=== PATIENT | male | born 1980 | race Caucasian/White ===

== ENCOUNTER 2018-04-06 19:38 | Emergency (ER) | payer OTHER ==
[~2018-04-06] VITALS: Ht 190.5 cm; Wt 120.2 kg
--- NOTE | 2018-04-06 19:51 | ED Abdominal Pain ---
General Stated Complaint: L SIDE ABD PAIN Source of Information: Patient Exam Limitations: No Limitations History of Present Illness Date Seen by Provider: Apr 06, 2018 Time Seen by Provider: 19:50 Initial Comments to ER per private vehicle with reports of left lower quadrant abdominal pain. He 's had this abdominal pain foraa couple of years off and on but it's never been intense and he never thought much of it. This evening after eating dinner he developed some nausea and very sharp pain in the left lower quadrant that is getting worse. He did take some Tylenol at home about an hour ago. No vomiting. No fevers or chills. No dysuria and no bowel changes. He suspects this may be a hernia.he does not report any scrotal pain or bulging. Timing/Duration: 1-2 Days Severity/Quality: Moderate Location: LLQ Radiation: No Radiation Associated Symptoms: Nausea/Vomiting Allergies and Home Medications Allergies Coded Allergies: No Known Drug Allergies (Unverified , 04/06/18) Patient Home Medication List Home Medication List Reviewed: Yes Review of Systems Constitutional: see HPI; No chills, No fever EENTM: No Symptoms Reported Respiratory: No Symptoms Reported Cardiovascular: No Symptoms Reported Gastrointestinal: See HPI, Abdominal Pain; Denies Constipated, Denies Diarrhea ; Nausea; Denies Vomiting Genitourinary: No Symptoms Reported Musculoskeletal: no symptoms reported Skin: no symptoms reported Psychiatric/Neurological: No Symptoms Reported Endocrine: No Symptoms Reported Past Rbnohdk-Qixzpk-Bgouid Hx Patient Social History Recent Foreign Travel: No Contact w/Someone Who Travel: No Physical Exam Vital Signs Vital Signs - First Documented 04/06/18 19:42 Temp 98.4 Pulse 83 Resp 18 B/P (MAP) 138/95 (109) Pulse Ox 96 O2 Delivery Room Air Capillary Refill : Height/Weight/BMI Height: '" Weight: lbs. oz. kg; BMI Method: General Appearance: WD/WN, no apparent distress HEENT: PERRL/EOMI, normal ENT inspection Neck: non-tender, full range of motion Respiratory: no respiratory distress, no accessory muscle use Gastrointestinal: normal bowel sounds, soft; No guarding; rebound, tenderness ( left lower quadrant tenderness to palpation), other (nno bulges in the abdominal wall. I suspect this may be diverticulitis so we will further evaluate with CT scan.) Extremities: normal range of motion, non-tender Neurologic/Psychiatric: alert, normal mood/affect, oriented x 3 Skin: normal color, warm/dry Progress/Results/Core Measures Results/Orders Lab Results Laboratory Tests Test 04/06/18 19:50 Range/Units White Blood Count 11.6 H 4.3-11.0 10^3/uL Red Blood Count 5.16 4.35-5.85 10^6/uL Hemoglobin 15.6 13.3-17.7 G/DL Hematocrit 45 40-54 % Mean Corpuscular Volume 87 80-99 FL Mean Corpuscular Hemoglobin 30 25-34 PG Mean Corpuscular Hemoglobin Concent 35 32-36 G/DL Red Cell Distribution Width 13.8 10.0-14.5 % Platelet Count 405 H 130-400 10^3/uL Mean Platelet Volume 9.1 7.4-10.4 FL Neutrophils (%) (Auto) 63 42-75 % Lymphocytes (%) (Auto) 23 12-44 % Monocytes (%) (Auto) 10 0-12 % Eosinophils (%) (Auto) 4 0-10 % Basophils (%) (Auto) 0 0-10 % Neutrophils # (Auto) 7.3 1.8-7.8 X 10^3 Lymphocytes # (Auto) 2.7 1.0-4.0 X 10^3 Monocytes # (Auto) 1.1 H 0.0-1.0 X 10^3 Eosinophils # (Auto) 0.4 H 0.0-0.3 10^3/uL Basophils # (Auto) 0.1 0.0-0.1 10^3/uL Sodium Level 139 135-145 MMOL/L Potassium Level 3.8 3.6-5.0 MMOL/L Chloride Level 106 98-107 MMOL/L Carbon Dioxide Level 22 21-32 MMOL/L Anion Gap 11 5-14 MMOL/L Blood Urea Nitrogen 12 7-18 MG/DL Creatinine 0.83 0.60-1.30 MG/DL Estimat Glomerular Filtration Rate > 60 BUN/Creatinine Ratio 14 Glucose Level 92 70-105 MG/DL Calcium Level 9.3 8.5-10.1 MG/DL Total Bilirubin 0.5 0.1-1.0 MG/DL Aspartate Amino Transf (AST/SGOT) 22 5-34 U/L Alanine Aminotransferase (ALT/SGPT) 30 0-55 U/L Alkaline Phosphatase 55 40-136 U/L Total Protein 7.7 6.4-8.2 GM/DL Albumin 4.4 3.2-4.5 GM/DL My Orders Orders - SHARONDA HART APRN Ketorolac Injection (Toradol Injection) (04/06/18 20:00) Cbc With Automated Diff (04/06/18 19:47) Ua Culture If Indicated (04/06/18 19:47) Comprehensive Metabolic Panel (04/06/18 19:47) Iv Heplock-Insert (Order) (04/06/18 19:47) Ct Abdomen/Pelvis W (04/06/18 19:47) Iohexol Injection (Omnipaque 350 Mg/Ml 1 (04/06/18 20:00) Ns (Ivpb) (Sodium Chloride 0.9% Ivpb Bag (04/06/18 20:00) Medications Given in ED Current Medications Medications Dose Ordered Sig/Xenia Route Start Time Stop Time Status Last Admin Dose Admin Iohexol 100 ml ONCE ONCE IV 04/06/18 20:00 04/06/18 20:04 DC 04/06/18 20:04 100 ML Ketorolac Tromethamine 30 mg ONCE ONCE IVP 04/06/18 20:00 04/06/18 20:01 DC 04/06/18 20:01 30 MG Sodium Chloride 100 ml ONCE ONCE IV 04/06/18 20:00 04/06/18 20:04 DC 04/06/18 20:04 100 ML Vital Signs/I&O 04/06/18 19:42 Temp 98.4 Pulse 83 Resp 18 B/P (MAP) 138/95 (109) Pulse Ox 96 O2 Delivery Room Air Diagnostic Imaging Diagonstic Imaging: CT Comments NAME: DIANA [facility] REC#: [id number] PT STATUS: REG ER : 1980 PHYSICIAN: SHARONDA HART APRN ADMIT DATE: 04/06/18/ER Draft Date of Exam:04/06/18 CT ABDOMEN/PELVIS W PROCEDURE: CT abdomen and pelvis with contrast. TECHNIQUE: Multiple contiguous axial images were obtained through the abdomen and pelvis after administration of intravenous contrast. INDICATION: Left lower quadrant abdominal pain. COMPARISON: None. FINDINGS: The lung bases are clear. There is fatty infiltration throughout the liver. The gallbladder and remainder of the solid organs are grossly unremarkable. Vascular structures are intact. There are a few diverticuli of the sigmoid colon with some slight inflammatory change in the mesenteric fat. This likely represents a very minimal diverticulitis. There is no abscess, free air or free fluid. The prostate is normal. Distal ureters and urinary bladder are unremarkable. The appendix is normal. Osseous structures are age-appropriate. IMPRESSION: 1. Minimal diverticulitis of the sigmoid colon. No abscess. 2. Fatty liver. Dictated on workstation # [id number] Dict: 04/06/182024 Trans: 04/06/182027 [facility] [id number] Interpreted by: GRACIELA BAIN Electronically signed by: Departure Impression Primary Impression: Diverticulitis of intestine Disposition: 01 HOME, SELF-CARE Condition: Stable Departure-Patient Inst. Decision time for Depature: 20:31 Referrals: MARCIA SWEENEY MD (PCP/Family) Primary Care Physician Patient Instructions: Diverticulitis (DC) Add. Discharge Instructions: 1. Clear liquids only for the next 24 hours 2. Antibiotics as directed 3. Pain medication in addition to ibuprofen as needed for pain control. Antibiotics as directed. Nausea medication as needed. Follow-up with your doctor within 1 week for recheck. Scripts Ondansetron (Zofran Odt) 8 Mg Tab.rapdis 8 MG PO Q6H PRN for NAUSEA/VOMITING-1ST LINE, #14 TAB Prov: SHARONDA HART APRN 04/06/18 Hydrocodone/Acetaminophen ([place] 5-325 Tablet) 1 Each Tablet 1 EACH PO Q4H PRN for PAIN-SEVERE TO BREAKTHROUGH, #14 TAB Prov: SHARONDA HART APRN 04/06/18 Amoxicillin/Potassium Clav (Augmentin 875-125 Tablet) 1 Each Tablet 1 EACH PO BID, #14 TAB Prov: SHARONDA HART APRN 04/06/18 Work/School Note: Work Release Form Date Seen in the Emergency Department: Apr 06, 2018 Return to Work: Apr 08, 2018 SHARONDA HART APRN Apr 06, 2018 19:51
[2018-04-06 19:59] LABS: BASOPHILS # (AUTO) 0.1 10^3/uL (0.0-0.1); BASOPHILS % (AUTO) 0 % (0-10); EOSINOPHILS # (AUTO) 0.4 10^3/uL (0.0-0.3); EOSINOPHILS % (AUTO) 4 % (0-10); HEMATOCRIT 45 % (40-54); HEMOGLOBIN 15.6 G/DL (13.3-17.7); LYMPHOCYTES # (AUTO) 2.7 X 10^3 (1.0-4.0); LYMPHOCYTES % (AUTO) 23 % (12-44); MEAN CORPUSCULAR HEMOGLOBIN 30 PG (25-34); MEAN CORPUSCULAR HGB CONC 35 G/DL (32-36); MEAN CORPUSCULAR VOLUME 87 FL (80-99); MEAN PLATELET VOLUME 9.1 FL (7.4-10.4); MONOCYTES # (AUTO) 1.1 X 10^3 (0.0-1.0); MONOCYTES % (AUTO) 10 % (0-12); NEUTROPHILS # (AUTO) 7.3 X 10^3 (1.8-7.8); NEUTROPHILS % (AUTO) 63 % (42-75); PLATELET COUNT 405 10^3/uL (130-400); RED BLOOD COUNT 5.16 10^6/uL (4.35-5.85); RED CELL DISTRIBUTION WIDTH 13.8 % (10.0-14.5); WHITE BLOOD COUNT 11.6 10^3/uL (4.3-11.0)
[2018-04-06] MEDS ORDERED: NS 100 ML (IVPB) BAG IV ONE (20:00)
[2018-04-06] MEDS ORDERED: IOHEXOL 350 MG/ML 100 ML (OMNIPAQUE 350) VIAL IV ONE (20:00)
[2018-04-06] MEDS ORDERED: KETOROLAC 30 MG/ML VIAL IVP ONE (20:00)
[2018-04-06 20:22] LABS: ALANINE AMINOTRANSFERASE 30 U/L (0-55); ALBUMIN 4.4 GM/DL (3.2-4.5); ALKALINE PHOSPHATASE 55 U/L (40-136); BILIRUBIN,TOTAL 0.5 MG/DL (0.1-1.0); BUN/CREATININE RATIO 14; CALCIUM 9.3 MG/DL (8.5-10.1); CARBON DIOXIDE 22 MMOL/L (21-32); CHLORIDE 106 MMOL/L (98-107); CREATININE SERUM 0.83 MG/DL (0.60-1.30); GFR ESTIMATED > 60; GLUCOSE 92 MG/DL (70-105); POTASSIUM 3.8 MMOL/L (3.6-5.0); SODIUM 139 MMOL/L (135-145); TOTAL PROTEIN 7.7 GM/DL (6.4-8.2)
--- NOTE | 2018-04-06 20:29 | Diagnostic Imaging Report ---
PROCEDURE: CT abdomen and pelvis with contrast. TECHNIQUE: Multiple contiguous axial images were obtained through the abdomen and pelvis after administration of intravenous contrast. INDICATION: Left lower quadrant abdominal pain. COMPARISON: None. FINDINGS: The lung bases are clear. There is fatty infiltration throughout the liver. The gallbladder and remainder of the solid organs are grossly unremarkable. Vascular structures are intact. There are a few diverticuli of the sigmoid colon with some slight inflammatory change in the mesenteric fat. This likely represents a very minimal diverticulitis. There is no abscess, free air or free fluid. The prostate is normal. Distal ureters and urinary bladder are unremarkable. The appendix is normal. Osseous structures are age-appropriate. IMPRESSION: 1. Minimal diverticulitis of the sigmoid colon. No abscess. 2. Fatty liver. Dictated by: Dictated on workstation # [id number]
[2018-04-06] MEDS ORDERED: HYDR-757 PO (20:33)
[2018-04-06] MEDS ORDERED: ONDA8TAB9 PO (20:33)
[2018-04-06] MEDS ORDERED: AMOX-358 PO (20:33)
[2018-04-06] MEDS ORDERED: RX-ONDANSETRON 4 MG ODT (ZOFRAN) PPK #4 PO STA (20:46)
[2018-04-06 20:57] VITALS: BP 138/95
[2018-04-06] MEDS ORDERED: AUGMENTIN 875 MG TAB (AMOXICILLIN/CLAVULANATE) PO SCH (21:00)
== END 2018-04-06 20:57 | disposition home or self-care (01) ==
LOC: EDUNIT# 19:38 → ER 19:40
DX: K57.30 Diverticulosis of large intestine without perforation or abscess without bleeding (principal)
CPT/HCPCS: 36415; 74177; 80053; 85025; 96374

== ENCOUNTER 2018-06-14 06:34 | Emergency (ER) | payer OTHER ==
[~2018-06-14] VITALS: Ht 190.5 cm; Wt 117.9 kg
[~2018-06-14 06:34] MED LIST: AMOX-358 PO; HYDR-4226 PO; ONDA8TAB9 PO
--- OUTSIDE RECORDS SUMMARY | 2018-06-14 06:41 | XMS REPORT | Continuity of Care Document ---
Author Author [facility] Organization [facility] Address Unknown Phone Unavailable Allergies Active Description Code Type Severity Reaction Onset Reported/Identified Relationship to Patient Clinical Status Yes No Known Drug Allergies [id number] Drug Allergy Unknown N/A 04/06/2018 Medications There is no data. Problems Date Dx Coded Attending Type Code Diagnosis Diagnosed By 04/06/2018 SHARONDA HART APRN Ot K57.30 DVRTCLOS OF LG INT W/O PERFORATION OR AB 04/06/2018 SHARONDA HART APRN Ot R10.32 LEFT LOWER QUADRANT PAIN 04/08/2018 SHARONDA HART APRN Ot K57.30 DVRTCLOS OF LG INT W/O PERFORATION OR AB 04/08/2018 SHARONDA HART APRN Ot R10.32 LEFT LOWER QUADRANT PAIN Procedures There is no data. Results Test Result Range Complete blood count (CBC) with automated white blood cell (WBC) differential - 04/06/18 19:50 Blood leukocytes automated count (number/volume) 11.6 10*3/uL 4.3-11.0 Blood erythrocytes automated count (number/volume) 5.16 10*6/uL 4.35-5.85 Venous blood hemoglobin measurement (mass/volume) 15.6 g/dL 13.3-17.7 Blood hematocrit (volume fraction) 45 % 40-54 Automated erythrocyte mean corpuscular volume 87 [foz_us] 80-99 Automated erythrocyte mean corpuscular hemoglobin (mass per erythrocyte) 30 pg 25-34 Automated erythrocyte mean corpuscular hemoglobin concentration measurement ( mass/volume) 35 g/dL 32-36 Automated erythrocyte distribution width ratio 13.8 % 10.0-14.5 Automated blood platelet count (count/volume) 405 10*3/uL 130-400 Automated blood platelet mean volume measurement 9.1 [foz_us] 7.4-10.4 Automated blood neutrophils/100 leukocytes 63 % 42-75 Automated blood lymphocytes/100 leukocytes 23 % 12-44 Blood monocytes/100 leukocytes 10 % 0-12 Automated blood eosinophils/100 leukocytes 4 % 0-10 Automated blood basophils/100 leukocytes 0 % 0-10 Blood neutrophils automated count (number/volume) 7.3 10*3 1.8-7.8 Blood lymphocytes automated count (number/volume) 2.7 10*3 1.0-4.0 Blood monocytes automated count (number/volume) 1.1 10*3 0.0-1.0 Automated eosinophil count 0.4 10*3/uL 0.0-0.3 Automated blood basophil count (count/volume) 0.1 10*3/uL 0.0-0.1 Comprehensive metabolic panel - 04/06/18 19:50 Serum or plasma sodium measurement (moles/volume) 139 mmol/L 135-145 Serum or plasma potassium measurement (moles/volume) 3.8 mmol/L 3.6-5.0 Serum or plasma chloride measurement (moles/volume) 106 mmol/L 98-107 Carbon dioxide 22 mmol/L 21-32 Serum or plasma anion gap determination (moles/volume) 11 mmol/L 5-14 Serum or plasma urea nitrogen measurement (mass/volume) 12 mg/dL 7-18 Serum or plasma creatinine measurement (mass/volume) 0.83 mg/dL 0.60-1.30 Serum or plasma urea nitrogen/creatinine mass ratio 14 NRG Serum or plasma creatinine measurement with calculation of estimated glomerular filtration rate > NRG Serum or plasma glucose measurement (mass/volume) 92 mg/dL 70-105 Serum or plasma calcium measurement (mass/volume) 9.3 mg/dL 8.5-10.1 Serum or plasma total bilirubin measurement (mass/volume) 0.5 mg/dL 0.1-1.0 Serum or plasma alkaline phosphatase measurement (enzymatic activity/volume) 55 U/L 40-136 Serum or plasma aspartate aminotransferase measurement (enzymatic activity/ volume) 22 U/L 5-34 Serum or plasma alanine aminotransferase measurement (enzymatic activity/volume ) 30 U/L 0-55 Serum or plasma protein measurement (mass/volume) 7.7 g/dL 6.4-8.2 Serum or plasma albumin measurement (mass/volume) 4.4 g/dL 3.2-4.5 Encounters ACCT No. Visit Date/Time Discharge Status Pt. Type Provider Facility Loc./Unit Complaint [id number] 04/06/2018 19:40:00 04/06/2018 20:57:00 DIS Emergency SHARONDA HART APRN [facility] ER L SIDE ABD PAIN [id number] 03/23/2014 21:20:00 03/24/2014 06:30:00 DIS Outpatient
[2018-06-14] MEDS ORDERED: IBUPROFEN 800 MG (MOTRIN) TAB PO STA (07:02)
--- NOTE | 2018-06-14 07:30 | Diagnostic Imaging Report ---
EXAM: CHEST PA/LAT (2 VIEW) INDICATION: Cough. COMPARISON: None. FINDINGS: Normal heart size and pulmonary vascularity. Mild linear atelectasis or scarring in the left lung base. No dense consolidation, pleural effusion or pneumothorax. No acute osseous findings. IMPRESSION: No acute cardiopulmonary findings. Dictated by: Dictated on workstation # [id number]
--- NOTE | 2018-06-14 08:44 | ED Cough/URI ---
General Chief Complaint: Cough/Cold/Flu Symptoms Stated Complaint: FOR 1 WEEK HAS BODY ACHES,PAIN KEEPS COMING BACK Nursing Triage Note: AMBULATORY TO ED WITH C/O BODY ACHES AND HEAD ACHES SINCE LAST SATURDAY, HAS TAKEN TYLENOL WHICH HELPS BUT THEN ACHES RETURN. LAST TYLENOL 24H AGO. FEVER, CHILLS, NAUSEA EARLIER IN THE WEEK. Source: patient Exam Limitations: no limitations History of Present Illness Date Seen by Provider: Jun 14, 2018 Time Seen by Provider: 08:20 Initial Comments Here with report of fevers, chills and body aches for the last 6 days. Denies vomiting but did have some nausea. The aches continued and worsened today prompting his visit. Seems to respond to Tylenol at home. Timing/Duration: week, changing over time Severity/Quality: mild, dry cough Prior Episodes/Possible Cause: occasional episodes Associated Symptoms: cough, fever/chills, muscle aches, shortness of breath, sore throat Allergies and Home Medications Allergies Coded Allergies: No Known Drug Allergies (Unverified , 04/06/18) Home Medications Amoxicillin/Potassium Clav 1 Each Tablet, 1 EACH PO BID Prescribed by: SHARONDA HART on 04/06/182032 Hydrocodone/Acetaminophen 1 Each Tablet, 1 EACH PO Q4H PRN for PAIN-SEVERE TO BREAKTHROUGH Prescribed by: SHARONDA HART on 04/06/182032 Ondansetron 8 Mg Tab.rapdis, 8 MG PO Q6H PRN for NAUSEA/VOMITING-1ST LINE Prescribed by: SHARONDA HART on 04/06/182032 Patient Home Medication List Home Medication List Reviewed: Yes Review of Systems Review of Systems Constitutional: see HPI, chills, fever, malaise EENTM: see HPI, nose congestion; No throat pain Respiratory: see HPI Cardiovascular: no symptoms reported Gastrointestinal: see HPI Musculoskeletal: see HPI, muscle pain; No muscle weakness Past Swszxin-Sygibc-Neabbl Hx Past Med/Social Hx: Reviewed Nursing Past Med/Soc Hx Patient Social History Alcohol Use: Denies Use Recreational Drug Use: No Smoking Status: Never a Smoker Recent Foreign Travel: No Contact w/Someone Who Travel: No Recent Infectious Disease Expo: No Recent Hopitalizations: No Immunizations Up To Date Tetanus Booster (TDap): Unknown PED Vaccines UTD: Yes Seasonal Allergies Seasonal Allergies: No Past Medical History Surgeries: Yes Orthopedic Respiratory: No Cardiac: No Neurological: No Genitourinary: No Gastrointestinal: No Musculoskeletal: No Endocrine: No HEENT: No Cancer: No Psychosocial: No Integumentary: No Blood Disorders: No Family Medical History Reviewed Nursing Family Hx Physical Exam Vital Signs - First Documented 06/14/18 06:54 Temp 100.3 Pulse 97 Resp 17 B/P (MAP) 140/100 (113) O2 Delivery Room Air Capillary Refill : Less Than 3 Seconds Height: 6'3.00" Weight: 260lbs. oz. 117.630265ut; BMI Method:Stated General Appearance: WD/WN, no apparent distress HEENT: PERRL/EOMI, pharynx normal Respiratory: lungs clear, normal breath sounds Cardiovascular: regular rate, rhythm, no murmur Neurologic/Psychiatric: alert, oriented x 3 Skin: normal color, warm/dry Progress/Results/Core Measures Suspected Sepsis Recent Fever Within 48 Hours: Yes Infection Criteria Present: Suspected New Infection New/Unexplained Altered Menta: No Sepsis Screen: Possible Sepsis Risk SIRS Temperature:100.3 Pulse: 97 Respiratory Rate: 17 Blood Pressure 140 /100 Mean: 113 Results/Orders Micro Results Microbiology 06/14/18 Influenza Types A,B Antigen (MACEY) - Final, Complete My Orders Orders - MOISES WILDE MD Influenza A And B Antigens (06/14/18 06:49) Chest Pa/Lat (2 View) (06/14/18 07:02) Ibuprofen Tablet (Motrin Tablet) (06/14/18 07:02) Vital Signs/I&O 06/14/18 06/14/18 06:54 06:54 Temp 100.3 Pulse 97 Resp 17 B/P (MAP) 140/100 (113) O2 Delivery Room Air Capillary Refill : Less Than 3 Seconds Blood Pressure Mean: 113 Progress Note : Progress Note Seen and evaluated. Ibuprofen 800 mg by mouth. Influenza screen and two-view chest x-ray ordered. Monitor patient. Influenza screen positive outpatient outside of Tamiflu window. X-ray negative. Improved with ibuprofen. Discussed supportive care. Discharged home with return precautions. Patient verbalize understanding instructions and agreement with plan. Departure Impression Primary Impression: Influenza Disposition: 01 HOME, SELF-CARE Condition: Improved Departure-Patient Inst. Decision time for Depature: 08:43 Referrals: MARCIA SWEENEY MD (PCP/Family) Primary Care Physician Patient Instructions: Flu, Adult (DC), Fever, Adult (DC) Add. Discharge Instructions: All discharge instructions reviewed with patient and/or family. Voiced understanding. Drink plenty of fluids. You may take Tylenol/acetaminophen 1000 mg every 8 hours as needed for pain or fever. You may take ibuprofen 800 mg every 8 hours as needed for fever or pain. Avoid contact with others while you still have fever. Return for worse pain, fever, vomiting, weakness, breathing problems or other concerns as needed. MOISES WILDE MD Jun 14, 2018 08:44
[2018-06-14 08:49] VITALS: BP 145/97
== END 2018-06-14 08:49 | disposition home or self-care (01) ==
LOC: EDUNIT# 06:34 → ER 06:37
DX: J10.1 Influenza due to other identified influenza virus with other respiratory manifestations (principal)
CPT/HCPCS: 71046; 87804

== ENCOUNTER → 2018-07-22 | Outpatient (CLI) | payer OTHER | LOC: CARD 07:23 | PROVIDERS: ATTEND Internal Medicine | DX: R07.9 Chest pain, unspecified (principal) | CPT/HCPCS: 93005 ==

== ENCOUNTER 2019-09-24 12:31 | Emergency (ER) | payer OTHER ==
[~2019-09-24] VITALS: Ht 190 cm; Wt 123.0 kg
--- NOTE | 2019-09-24 12:52 | ED Upper Extremity ---
General Chief Complaint: Upper Extremity Stated Complaint: LEFT HAND-FINGER INJ Nursing Triage Note: PT SMASHED MIDDLE FINGER L HAND ON SATURDAY, IN DOOR. NAIL BRUISED Nursing Sepsis Screen: No Definite Risk Source: patient Exam Limitations: no limitations History of Present Illness Date Seen by Provider: Sep 24, 2019 Time Seen by Provider: 12:47 Initial Comments Shut right middle finger in a door two days ago, now bruising beneath the nail Onset: just prior to arrival Severity: moderate Pain/Injury Location: left 3rd finger Method of Injury: direct blow Modifying Factors: Worse With Movement Allergies and Home Medications Allergies Coded Allergies: No Known Drug Allergies (Unverified , 04/06/18) Home Medications No Active Prescriptions or Reported Meds Patient Home Medication List Home Medication List Reviewed: Yes Review of Systems Constitutional: see HPI EENTM: see HPI Respiratory: no symptoms reported Cardiovascular: no symptoms reported Genitourinary: no symptoms reported Musculoskeletal: see HPI Skin: no symptoms reported Psychiatric/Neurological: No Symptoms Reported Past Nlchxas-Efbtoh-Gnegoc Hx Patient Social History Alcohol Use: Denies Use Recreational Drug Use: No Smoking Status: Never a Smoker Recent Foreign Travel: No Contact w/Someone Who Travel: No Recent Infectious Disease Expo: No Recent Hopitalizations: No Physical Abuse: No Sexual Abuse: No Immunizations Up To Date Tetanus Booster (TDap): More than 5yrs PED Vaccines UTD: Yes Seasonal Allergies Seasonal Allergies: No Past Medical History Surgeries: Yes Orthopedic Respiratory: No Cardiac: No Neurological: No Genitourinary: No Gastrointestinal: No Musculoskeletal: No Endocrine: No HEENT: No Cancer: No Psychosocial: No Integumentary: No Blood Disorders: No Physical Exam Vital Signs Vital Signs - First Documented 09/24/19 12:35 Temp 36.9 Pulse 75 Resp 18 B/P (MAP) 152/104 (120) Pulse Ox 96 Capillary Refill : Less Than 3 Seconds Height, Weight, BMI Height: 6'3.00" Weight: 260lbs. oz. 117.301288ii; 34.00 BMI Method:Stated General Appearance: WD/WN, no apparent distress HEENT: PERRL/EOMI, normal ENT inspection Respiratory: no respiratory distress, no accessory muscle use Shoulder: normal inspection, non-tender Elbow/Forearm: normal inspection, non-tender Wrist: Yes normal inspection, Yes non-tender Hand: Left, soft tissue tenderness, swelling (swelling to distal phalanx left middle finger with 80-100% subungual hematoma. Nail trephination was done using a blunt 18-gauge needle twisted back and forth until subungual blood was expressed. Discussed with him obtaining an x-ray though given the swelling confined to the distal phalanx without other open wound was fractured it would not affect management. I will place him in a splint for about 2-3 weeks and he agrees with this plan and foregoing x-ray.) Neurologic/Psychiatric: alert, normal mood/affect, oriented x 3 Skin: normal color, warm/dry Procedures/Interventions Progress Nail trephination as mentioned in the exam Progress/Results/Core Measures Results/Orders Vital Signs/I&O 09/24/19 12:35 Temp 36.9 Pulse 75 Resp 18 B/P (MAP) 152/104 (120) Pulse Ox 96 Blood Pressure Mean: 120 Departure Impression Primary Impression: Subungual hematoma Disposition: 01 HOME, SELF-CARE Condition: Stable Departure-Patient Inst. Decision time for Depature: 12:51 Referrals: MARCIA SWEENEY MD (PCP/Family) Primary Care Physician Patient Instructions: HEMATOMA Add. Discharge Instructions: 1. Continue to gently squeeze the finger and expressed as much blood as possible for the rest of today. Keep this covered with a Band-Aid. Return to ER for any sign of infection such as redness or swelling. All discharge instructions reviewed with patient and/or family. Voiced understanding. Scripts No Active Prescriptions or Reported Meds SHARONDA HART APRN Sep 24, 2019 12:52
[2019-09-24 12:55] VITALS: BP 152/104
== END 2019-09-24 12:55 | disposition home or self-care (01) ==
LOC: EDUNIT# 12:31 → ER 12:32
DX: S60.132A Contusion of left middle finger with damage to nail, initial encounter (principal); W23.1XXA Caught, crushed, jammed, or pinched between stationary objects, initial encounter
CPT/HCPCS: 99282

== ENCOUNTER 2020-08-23 16:55 | Emergency (ER) | payer OTHER ==
[~2020-08-23] VITALS: Ht 190.5 cm; Wt 115.6 kg
[2020-08-23 17:56] LABS: BASOPHILS # (AUTO) 0.1 10^3/uL (0.0-0.1); BASOPHILS % (AUTO) 0 % (0-10); EOSINOPHILS # (AUTO) 0.1 10^3/uL (0.0-0.3); EOSINOPHILS % (AUTO) 1 % (0-10); HEMATOCRIT 47 % (40-54); HEMOGLOBIN 15.7 g/dL (13.3-17.7); LYMPHOCYTES # (AUTO) 1.1 10^3/uL (1.0-4.0); LYMPHOCYTES % (AUTO) 10 % (12-44); MEAN CORPUSCULAR HEMOGLOBIN 29 pg (25-34); MEAN CORPUSCULAR HGB CONC 34 g/dL (32-36); MEAN CORPUSCULAR VOLUME 87 fL (80-99); MONOCYTES # (AUTO) 1.1 10^3/uL (0.0-1.0); MONOCYTES % (AUTO) 10 % (0-12); NEUTROPHILS # (AUTO) 9.2 10^3/uL (1.8-7.8); NEUTROPHILS % (AUTO) 80 % (42-75); PLATELET COUNT 368 10^3/uL (130-400); WHITE BLOOD COUNT 11.5 10^3/uL (4.3-11.0)
[2020-08-23] MEDS ORDERED: NS IV 500 ML 500 ML IV SCH (18:00)
[2020-08-23 18:01] LABS: PROTHROMBIN TIME PATIENT 13.8 SEC (12.2-14.7)
[2020-08-23 18:04] LABS: ALBUMIN 4.4 GM/DL (3.2-4.5); CHLORIDE 102 MMOL/L (98-107); POTASSIUM 3.8 MMOL/L (3.6-5.0); SODIUM 137 MMOL/L (135-145)
[2020-08-23 18:05] LABS: CALCIUM 9.5 MG/DL (8.5-10.1)
--- NOTE | 2020-08-23 18:05 | ED General ---
General Chief Complaint: Respiratory Problems Stated Complaint: COVID+/FEVER/COUGH Nursing Triage Note: Ambulatoryto ED. Pt reports COVID symptoms began last Saturday. Pt was diagnosed COVID positive last Saturday. Pt denies SOB, but has cough, fever and chills since Saturday. Nursing Sepsis Screen: No Definite Risk Source of Information: Patient Exam Limitations: No Limitations History of Present Illness Date Seen by Provider: Aug 23, 2020 Time Seen by Provider: 18:01 Initial Comments To ER were on day 8 of Covid symptoms with reports of increasing fevers and development of hemoptysis today. He denies shortness of breath. Timing/Duration: 1-2 Days Severity: Moderate Associated Systoms: Denies Symptoms Allergies and Home Medications Allergies Coded Allergies: No Known Drug Allergies (Unverified , 04/06/18) Home Medications Dexamethasone 6 Mg Tablet, 6 MG PO DAILY Prescribed by: SHARONDA HART on 08/23/201913 Patient Home Medication List Home Medication List Reviewed: Yes Review of Systems Review of Systems Constitutional: see HPI, fever EENTM: see HPI Respiratory: see HPI, cough, hemoptysis Cardiovascular: no symptoms reported Genitourinary: no symptoms reported Musculoskeletal: no symptoms reported Skin: no symptoms reported Psychiatric/Neurological: No Symptoms Reported Hematologic/Lymphatic: No Symptoms Reported Immunological/Allergic: no symptoms reported Past Cyjpcup-Mxecdw-Izowkb Hx Patient Social History Alcohol Use: Denies Use Recreational Drug Use: No 2nd Hand Smoke Exposure: No Recent Foreign Travel: No Contact w/Someone Who Travel: No Recent Infectious Disease Expo: Yes Recent Hopitalizations: No Immunizations Up To Date Tetanus Booster (TDap): More than 5yrs PED Vaccines UTD: Yes Seasonal Allergies Seasonal Allergies: No Past Medical History Surgeries: Yes Orthopedic Respiratory: No Cardiac: No Neurological: No Genitourinary: No Gastrointestinal: No Musculoskeletal: No Endocrine: No HEENT: No Cancer: No Psychosocial: No Integumentary: No Blood Disorders: No Physical Exam Vital Signs Vital Signs - First Documented 08/23/20 17:15 Temp 38.2 Pulse 115 Resp 22 B/P (MAP) 131/89 (103) Pulse Ox 93 O2 Delivery Room Air Capillary Refill : Less Than 3 Seconds Height, Weight, BMI Height: 6'3.00" Weight: 260lbs. oz. 117.832620ih; 31.00 BMI Method:Stated General Appearance: No Apparent Distress, WD/WN Eyes: Bilateral Eye Normal Inspection, Bilateral Eye PERRL, Bilateral Eye EOMI HEENT: PERRL/EOMI, TMs Normal Neck: Full Range of Motion, Normal Inspection Respiratory: Normal Breath Sounds, No Accessory Muscle Use, No Respiratory Distress Cardiovascular: Normal Peripheral Pulses, Tachycardia (A little tachycardia rate of 105 sinus and oxygen saturation 95 to 96% on room air) Gastrointestinal: Normal Bowel Sounds, Non Tender, Soft Extremity: Normal Capillary Refill, Normal Inspection Neurologic/Psychiatric: Alert, Oriented x3 Progress/Results/Core Measures Suspected Sepsis Recent Fever Within 48 Hours: Yes Infection Criteria Present: None New/Unexplained Altered Menta: No Sepsis Screen: No Definite Risk SIRS Temperature: Pulse: 115 Respiratory Rate: 22 Laboratory Tests 08/23/20 17:25: White Blood Count 11.5H Blood Pressure 131 /89 Mean: 103 Laboratory Tests 08/23/20 17:25: Creatinine 0.86, INR Comment 1.0, Platelet Count 368, Total Bilirubin 0.7 Results/Orders Lab Results Laboratory Tests Test 08/23/20 17:25 Range/Units White Blood Count 11.5 H 4.3-11.0 10^3/uL Red Blood Count 5.35 4.30-5.52 10^6/uL Hemoglobin 15.7 13.3-17.7 g/dL Hematocrit 47 40-54 % Mean Corpuscular Volume 87 80-99 fL Mean Corpuscular Hemoglobin 29 25-34 pg Mean Corpuscular Hemoglobin Concent 34 32-36 g/dL Red Cell Distribution Width 13.1 10.0-14.5 % Platelet Count 368 130-400 10^3/uL Mean Platelet Volume 9.0 9.0-12.2 fL Immature Granulocyte % (Auto) 0 % Neutrophils (%) (Auto) 80 H 42-75 % Lymphocytes (%) (Auto) 10 L 12-44 % Monocytes (%) (Auto) 10 0-12 % Eosinophils (%) (Auto) 1 0-10 % Basophils (%) (Auto) 0 0-10 % Neutrophils # (Auto) 9.2 H 1.8-7.8 10^3/uL Lymphocytes # (Auto) 1.1 1.0-4.0 10^3/uL Monocytes # (Auto) 1.1 H 0.0-1.0 10^3/uL Eosinophils # (Auto) 0.1 0.0-0.3 10^3/uL Basophils # (Auto) 0.1 0.0-0.1 10^3/uL Immature Granulocyte # (Auto) 0.0 0.0-0.1 10^3/uL Prothrombin Time 13.8 12.2-14.7 SEC INR Comment 1.0 0.8-1.4 Sodium Level 137 135-145 MMOL/L Potassium Level 3.8 3.6-5.0 MMOL/L Chloride Level 102 98-107 MMOL/L Carbon Dioxide Level 24 21-32 MMOL/L Anion Gap 11 5-14 MMOL/L Blood Urea Nitrogen 12 7-18 MG/DL Creatinine 0.86 0.60-1.30 MG/DL Estimat Glomerular Filtration Rate > 60 BUN/Creatinine Ratio 14 Glucose Level 103 70-105 MG/DL Calcium Level 9.5 8.5-10.1 MG/DL Corrected Calcium 9.2 8.5-10.1 MG/DL Total Bilirubin 0.7 0.1-1.0 MG/DL Aspartate Amino Transf (AST/SGOT) 19 5-34 U/L Alanine Aminotransferase (ALT/SGPT) 20 0-55 U/L Alkaline Phosphatase 63 40-136 U/L C-Reactive Protein High Sensitivity 3.69 H 0.00-0.50 MG/DL Total Protein 8.1 6.4-8.2 GM/DL Albumin 4.4 3.2-4.5 GM/DL Procalcitonin 0.06 <0.10 NG/ML My Orders Orders - SHARONDA HART [employer] Cbc With Automated Diff (08/23/20 17:50) Comprehensive Metabolic Panel (08/23/20 17:50) Protime With Inr (08/23/20 17:50) Procalcitonin (Pct) (08/23/20 17:50) Hs C Reactive Protein (08/23/20 17:50) Ed Iv/Invasive Line Start (08/23/20 17:50) Ct Angio Chest W (08/23/20 17:59) Ns Iv 500 Ml (Sodium Chloride 0.9%) (08/23/20 18:00) Iohexol Injection (Omnipaque 350 Mg/Ml 1 (08/23/20 18:45) Received Contrast (Hold Metformin- Contr (08/23/20 18:45) Ns (Ivpb) (Sodium Chloride 0.9% Ivpb Bag (08/23/20 18:45) Iohexol Injection (Omnipaque 350 Mg/Ml 1 (08/23/20 19:00) Received Contrast (Hold Metformin- Contr (08/23/20 19:00) Ns (Ivpb) (Sodium Chloride 0.9% Ivpb Bag (08/23/20 19:00) Medications Given in ED Current Medications Medications Dose Ordered Sig/Xenia Route Start Time Stop Time Status Last Admin Dose Admin Iohexol 100 ml ONCE ONCE IV 08/23/20 18:45 08/23/20 18:48 DC 08/23/20 19:07 84 ML Sodium Chloride 100 ml ONCE ONCE IV 08/23/20 18:45 08/23/20 18:48 DC 08/23/20 19:07 80 ML Vital Signs/I&O 08/23/20 17:15 Temp 38.2 Pulse 115 Resp 22 B/P (MAP) 131/89 (103) Pulse Ox 93 O2 Delivery Room Air Capillary Refill : Less Than 3 Seconds Blood Pressure Mean: 103 Diagnostic Imaging Diagonstic Imaging: CT Comments NAME: [facility] REC#: [id number] PT STATUS: REG ER : 1980 PHYSICIAN: SHARONDA HART APRN ADMIT DATE: 08/23/20/ER Draft Date of Exam:08/23/20 CT ANGIO CHEST W PROCEDURE: CT angiography of the chest with contrast. TECHNIQUE: Multiple contiguous axial images were obtained through the chest after uneventful bolus administration of intravenous contrast. 3D reconstructed CTA MIP acquisitions were also performed. Auto Exposure Controls were utilized during the CT exam to meet ALARA standards for radiation dose reduction. INDICATION: Hemoptysis. COMPARISON: None FINDINGS: There is no acute pulmonary embolus to the first subsegmental division of the pulmonary arteries. Thoracic aorta is normal in course and caliber. There is no evidence of aneurysm or dissection. By NASCET criteria, there is no focal significant stenosis. Heart size is within normal limits. There is no large pericardial effusion. Enlarged right hilar and mediastinal lymph nodes. The largest is seen within the anterior superior mediastinum and measures 2.7 x 1.9 cm. No abnormal axillary adenopathy is seen. Evaluation of the lung anaya demonstrates scattered patchy and confluent groundglass densities with area of greatest confluence in the posterior lateral margins of the right middle lobe. There is no large effusion or pneumothorax. Pulmonary nodule may be obscured. Osseous structures show no acute abnormalities. No lytic or blastic bony lesions are seen. Included portions of the upper abdomen show no additional acute abnormalities. IMPRESSION: 1. No acute pulmonary embolus to the 1st subsegmental division of the pulmonary arteries. 2. Scattered patchy and confluent groundglass densities, greatest within the right middle lobe. Findings correspond to a provided clinical history of Covid pneumonia. 3. Enlarged right hilar and mediastinal adenopathy; possibly reactive. May want to consider follow-up. Dictated on workstation # [id number] Dict: 08/23/201909 Trans: 08/23/201916 [facility] [id number] Interpreted by: ANNAMARIE CHILDS MD Electronically signed by: Departure Impression Primary Impression: COVID-19 Disposition: 01 HOME, SELF-CARE Condition: Stable Departure-Patient Inst. Decision time for Depature: 19:12 Referrals: MARCIA SWEENEY MD (PCP/Family) Primary Care Physician Patient Instructions: Coronavirus Disease 2019 (COVID-19) ED Add. Discharge Instructions: 1. The blood in your sputum is a result of irritation of your airways from persistent coughing. No blood clot was seen on CT scan. We will put you on some steroids to help reduce the inflammation in the airways. Follow-up with your doctor. Return to ER for any worsening. Your labs do not indicate any need for antibiotics at this time. Enlarged lymph nodes in your chest which is likely a factor of the Covid but it would warrant follow-up with your doctor just to ensure resolution and possibly repeat CT scan in a few months. All discharge instructions reviewed with patient and/or family. Voiced understanding. Scripts Dexamethasone (Dexamethasone) 6 Mg Tablet 6 MG PO DAILY, #5 TAB Prov: SHARONDA HART APRN 08/23/20 SHARONDA HART APRN Aug 23, 2020 18:05
[2020-08-23 18:06] LABS: GLUCOSE 103 MG/DL (70-105); TOTAL PROTEIN 8.1 GM/DL (6.4-8.2)
[2020-08-23 18:07] LABS: CARBON DIOXIDE 24 MMOL/L (21-32)
[2020-08-23 18:08] LABS: BILIRUBIN,TOTAL 0.7 MG/DL (0.1-1.0)
[2020-08-23 18:10] LABS: ALKALINE PHOSPHATASE 63 U/L (40-136); CREATININE SERUM 0.86 MG/DL (0.60-1.30); GFR ESTIMATED > 60
[2020-08-23 18:11] LABS: BUN/CREATININE RATIO 14
[2020-08-23 18:13] LABS: ALANINE AMINOTRANSFERASE 20 U/L (0-55)
[2020-08-23] MEDS ORDERED: HOLD METFORMIN - RECEIVED CONTRAST 20 ML VIAL IV SCH ×2 (18:45→19:00)
[2020-08-23] MEDS ORDERED: IOHEXOL 350 MG/ML 100 ML (OMNIPAQUE 350) VIAL IV ONE ×2 (18:45→19:00)
[2020-08-23] MEDS ORDERED: NS 100 ML (IVPB) BAG IV ONE ×2 (18:45→19:00)
[2020-08-23] MEDS ORDERED: DEXA6TAB PO (19:14)
--- NOTE | 2020-08-23 19:18 | Diagnostic Imaging Report ---
PROCEDURE: CT angiography of the chest with contrast. TECHNIQUE: Multiple contiguous axial images were obtained through the chest after uneventful bolus administration of intravenous contrast. 3D reconstructed CTA MIP acquisitions were also performed. Auto Exposure Controls were utilized during the CT exam to meet ALARA standards for radiation dose reduction. INDICATION: Hemoptysis. COMPARISON: None FINDINGS: There is no acute pulmonary embolus to the first subsegmental division of the pulmonary arteries. Thoracic aorta is normal in course and caliber. There is no evidence of aneurysm or dissection. By NASCET criteria, there is no focal significant stenosis. Heart size is within normal limits. There is no large pericardial effusion. Enlarged right hilar and mediastinal lymph nodes. The largest is seen within the anterior superior mediastinum and measures 2.7 x 1.9 cm. No abnormal axillary adenopathy is seen. Evaluation of the lung anaya demonstrates scattered patchy and confluent groundglass densities with area of greatest confluence in the posterior lateral margins of the right middle lobe. There is no large effusion or pneumothorax. Pulmonary nodule may be obscured. Osseous structures show no acute abnormalities. No lytic or blastic bony lesions are seen. Included portions of the upper abdomen show no additional acute abnormalities. IMPRESSION: 1. No acute pulmonary embolus to the 1st subsegmental division of the pulmonary arteries. 2. Scattered patchy and confluent groundglass densities, greatest within the right middle lobe. Findings correspond to a provided clinical history of Covid pneumonia. 3. Enlarged right hilar and mediastinal adenopathy; possibly reactive. May want to consider follow-up. Dictated by: Dictated on workstation # [id number]
[2020-08-23] MEDS ORDERED: dexAMETHasone 6 MG TAB (DECADRON) PO SCH (19:30)
[2020-08-23 19:35] VITALS: BP 118/88
== END 2020-08-23 19:50 | disposition home or self-care (01) ==
LOC: EDUNIT# 16:55 → ER 16:56
DX: U07.1 COVID-19 (principal)
CPT/HCPCS: 36415; 71275; 80053; 84145; 85025; 85610; 86141

== ENCOUNTER → 2021-09-21 | Outpatient (CLI) | payer OTHER ==
[~2021-09-21] MED LIST changes: +DEXA6TAB PO
== END ==
LOC: LABNPT 06:14
PROVIDERS: ATTEND Physician Assistant
DX: R51.9 Headache, unspecified (principal); R50.9 Fever, unspecified; R05.9 Cough, unspecified; Z20.822 Contact with and (suspected) exposure to COVID-19
CPT/HCPCS: 87635